=== PATIENT | female | born 1980 ===

== ENCOUNTER 2023-11-15 11:03 | Outpatient (CLI) | payer OTHER ==
[~2023-11-15 11:03] MED LIST: DOLOGEN CAPLET1 EACH PO; MEDROL4 MG PO; PTE NO RECUERDA; ZANTAC300 MG PO; ZOFRAN4 MG PO
== END 2023-11-15 11:06 | disposition home or self-care (01) ==
LOC: SONOGRAMA 11:03
PROVIDERS: ATTEND Pathology Anatomic Pathology
DX: D34 Benign neoplasm of thyroid gland (principal); E07.89 Other specified disorders of thyroid; E04.1 Nontoxic single thyroid nodule